=== PATIENT | male | born 1980 | race Two or more races ===

== ENCOUNTER 2018-03-29 10:47 | Emergency (ER) | payer BC ==
--- OUTSIDE RECORDS SUMMARY | 2018-03-29 11:27 | XMS REPORT ---
:1980 External Reference #:[id number] Author Organization [facility] Address [address] [place] [address] Phone [phone] Care Team Providers Name Role Phone Robert Vargas MD Care Team Information Comedian Unavailable Robert Vargas MD Primary Care Physician Unavailable Payers Type Date Identification Numbers Payment Provider Subscriber Commercial Effective: Policy Number: BC/BS Of [employer] Torres Yoly Muniz 2015 [id number] PayID: [id number] [place] [id number] Problems Date Description Provider Status Onset: 06/29/2012 Allergic rhinitis Igor Norwood M.D. Active Onset: 09/18/2016 Aortic valve disorder Robert Vargas M.D. Active Onset: 09/18/2016 Non-neoplastic nevus Robert Vargas M.D. Active Onset: 12/16/2017 Balanoposthitis Robert Vargas M.D. Active Onset: 06/29/2012 Obesity Igor Norwood M.D. Inactive Inactive: 11/09/2017 Onset: 01/31/2013 Hyperlipidemia Igor Norwood M.D. Inactive Inactive: 11/09/2017 Onset: 08/31/2013 Acute pharyngitis Florin Hernandez M.D. Inactive Inactive: 11/09/2017 Onset: 08/31/2013 Acute upper respiratory infection Florin Hernandez M.D. Inactive Inactive: 11/09/2017 Onset: 01/23/2015 Viral infection by site Mauricio Mc M.D. Inactive Inactive: 11/09/2017 Onset: 09/18/2016 Adult health examination Robert Vargas M.D. Inactive Inactive: 11/09/2017 Onset: 09/18/2016 Gastroesophageal reflux disease Robert Vargas M.D. Inactive Inactive: 11/09/2017 Onset: 09/18/2016 Allergic rhinitis due to pollen Robert Vargas M.D. 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 Never Smoked Cigarettes ETOH Use Social Alcohol Smoking Patient has never smoked Exercise Type/Frequency Current Exercises sporadically Allergies, Adverse Reactions, Alerts Date Description Reaction Status Severity Comments 12/26/2008 NKDA active Medications Medication Date Status Form Strength Qnty SIG Indications Ordering Provider Augmentin 03/15/ Active Tablets 500-125mg 30tab 1 by J01.90 Cora 2017 s mouth Esme three Méndez, times a BOAT PILOT day Levocetirizine / Active Tablets 5mg 1 by Unknown Dihydrochloride 0000 mouth every day as needed Allergy Eye Drops / Active Solution 0.025% as needed Unknown 0000 Qnasl / Active Aerosol 80mcg/Act use once Unknown 0000 a day 2 sprays Vitamin D3 High / Active Capsules 1000Unit once Unknown Potency 0000 daily Amoxicillin 05/05/ Hx Capsules 500mg 20cap 1 by J01.90 Cora 2016 - s mouth Esme 06/10/ twice a Méndez, 2016 day BOAT PILOT Amoxicillin/Clavu 07/29/ Hx Tablets 875-125mg 20tab 1 po bid 382.9 Radha lanate Potassium 2013 - s x 10 days Kevin, 08/08/ Afeleanor-C 2013 Doxycycline 03/20/ Hx Capsules 100mg 20cap 1 po bid 465.9 [facility] 2012 Amoxicillin/Potas 09/15/ Hx Tablets 875-125mg 20tab 1 po bid 465.9 Radha sium Clavulanate 2012 s x 10 days Kevin, 09/28/ Afnp-C 2012 Montelukast 06/29/ Hx Tablets 10mg 90tab 1 po qd 477.9 Costa Sodium 2012 - s Tam Norwood, Neva 2013 Amoxicillin/Potas 06/04/ Hx Tablets 875-125mg 20tab 1 po bid 461.0 Varsha Alejo sium Clavulanate 2011 - s Jamila, MBhavinDBhavin 2012 Loratadine-D 24HR 11/25/ Hx Tablets ER 10-240mg 30tab 1 po qd 465.9 Costa 2010 - 24HR yamilet Norwood, MBhavinDBhavin 2011 Singulair 11/19/ Hx Tablets 10mg 90tab 1 po qd 477.9 Costa 2010 - yamilet Norwood, M.DBhavin 2011 Zithromax Z-Woodrow 08/05/ Hx Tablets 250mg 1Pack as Mauricio Richardson - directed Alexandro, M.Erin 2009 Loratadine 00/ Hx Tablets 10mg 1 po qd Unknown 0000 - 2010 Raya Allergy /00/ Hx Tablets 180mg 1 po qd Unknown 0000 - prn 2010 Loratadine / Hx Tablets 10mg 30tab 1 po qd Unknown 0000 - s 2015 Raya Allergy /00/ Hx Tablets 180mg 1 po qd Unknown 0000 - 2014 Nasonex / Hx Suspension 50mcg/Act 2 sprays Unknown 0000 - in each 09/17/ nostril 2017 daily Immunizations CPT Code Status Date Vaccine Lot # [id number] Given 05/10/2016 Influenza Vac, Quadriv[place], [place] [id number] Given 04/21/2015 Influenza Vac, Quadriv[place], [place] [id number] Given 05/13/2014 DO Not Use Split Influenza Virus Vaccine [id number] Given 11/19/2010 Tdap Tetanus, W Pertussis [id number] Vital Signs Date Vital Result Comment 03/15/2018 BP Systolic 124 mmHg BP Diastolic 84 mmHg Heart Rate 60 /min Body Temperature 98.1 F Respiratory Rate 18 /min Height 77 inches 6'5" measured 11/09/17 Weight 212.00 lb BMI (Body Mass Index) 25.1 kg/m2 12/16/2017 BP Systolic 142 mmHg BP Diastolic 60 mmHg Heart Rate 50 /min Body Temperature 97.8 F Respiratory Rate 16 /min Height 77 inches 6'5" measured 11/09/17 Weight 202.00 lb BMI (Body Mass Index) 24.0 kg/m2 11/09/2017 BP Systolic 110 mmHg BP Diastolic 64 mmHg Heart Rate 48 /min Body Temperature 98.6 F Respiratory Rate 16 /min Height 77 inches 6'5" measured 11/09/17 Weight 203.25 lb BMI (Body Mass Index) 24.1 kg/m2 05/05/2017 BP Systolic 116 mmHg BP Diastolic 78 mmHg Heart Rate 60 /min Body Temperature 97.3 F Height 76 inches 6'4" Weight 201.00 lb BMI (Body Mass Index) 24.5 kg/m2 09/18/2016 BP Systolic 118 mmHg BP Diastolic 70 mmHg Heart Rate 72 /min Respiratory Rate 16 /min Height 76 inches 6'4" Weight 197.25 lb BMI (Body Mass Index) 24.0 kg/m2 08/30/2015 BP Systolic 124 mmHg BP Diastolic 80 mmHg Heart Rate 60 /min Body Temperature 97.4 F Respiratory Rate 18 /min Height 75.25 inches 6'3.25" Weight 241.00 lb BMI (Body Mass Index) 29.9 kg/m2 01/23/2015 BP Systolic 124 mmHg BP Diastolic 80 mmHg Heart Rate 72 /min Body Temperature 98.5 F Height 76 inches 6'4" Weight 253.00 lb BMI (Body Mass Index) 30.8 kg/m2 11/29/2014 BP Systolic 96 mmHg BP Diastolic 62 mmHg Heart Rate 76 /min Body Temperature 98.4 F ibuprofen 1.5 hrs ago Respiratory Rate 16 /min Height 76 inches 6'4" Weight 251.00 lb BMI (Body Mass Index) 30.5 kg/m2 08/15/2014 BP Systolic 142 mmHg BP Diastolic 94 mmHg Heart Rate 84 /min Body Temperature 97.1 F Respiratory Rate 18 /min Height 76 inches 6'4" Weight 250.00 lb BMI (Body Mass Index) 30.4 kg/m2 08/31/2013 BP Systolic 130 mmHg BP Diastolic 90 mmHg Heart Rate 72 /min Body Temperature 97.8 F Respiratory Rate 16 /min Height 76 inches 6'4" Weight 235.00 lb BMI (Body Mass Index) 28.6 kg/m2 07/29/2013 BP Systolic 120 mmHg BP Diastolic 80 mmHg Heart Rate 72 /min Body Temperature 98.4 F Respiratory Rate 16 /min Height 76 inches 6'4" Weight 237.00 lb BMI (Body Mass Index) 28.8 kg/m2 03/20/2013 BP Systolic 132 mmHg BP Diastolic 88 mmHg Heart Rate 80 /min Body Temperature 98.0 F Respiratory Rate 16 /min Height 76 inches 6'4" Weight 231.00 lb BMI (Body Mass Index) 28.1 kg/m2 03/13/2013 BP Systolic 116 mmHg BP Diastolic 70 mmHg Heart Rate 60 /min Body Temperature 97.9 F Respiratory Rate 16 /min Height 76 inches 6'4" Weight 231.38 lb BMI (Body Mass Index) 28.2 kg/m2 01/31/2013 BP Systolic 124 mmHg BP Diastolic 80 mmHg Heart Rate 68 /min Body Temperature 98.0 F Respiratory Rate 18 /min Height 76 inches 6'4" Weight 232.00 lb BMI (Body Mass Index) 28.2 kg/m2 09/15/2012 BP Systolic 124 mmHg BP Diastolic 94 mmHg Heart Rate 72 /min Body Temperature 98.1 F Height 76 inches 6'4" Weight 250.12 lb BMI (Body Mass Index) 30.4 kg/m2 06/29/2012 BP Systolic 120 mmHg BP Diastolic 90 mmHg Heart Rate 66 /min Body Temperature 97.1 F Height 76 inches 6'4" Weight 268.00 lb BMI (Body Mass Index) 32.6 kg/m2 06/04/2012 BP Systolic 130 mmHg BP Diastolic 84 mmHg Heart Rate 78 /min Body Temperature 98.0 F Height 76 inches 6'4" Weight 264.00 lb BMI (Body Mass Index) 32.1 kg/m2 05/30/2012 BP Systolic 134 mmHg BP Diastolic 64 mmHg Heart Rate 72 /min Body Temperature 98.4 F Height 76 inches 6'4" Weight 268.00 lb BMI (Body Mass Index) 32.6 kg/m2 11/25/2010 BP Systolic 106 mmHg BP Diastolic 72 mmHg Heart Rate 90 /min Body Temperature 99.6 F Height 76 inches 6'4" Weight 258.00 lb BMI (Body Mass Index) 31.4 kg/m2 11/19/2010 BP Systolic 122 mmHg BP Diastolic 72 mmHg Heart Rate 72 /min Body Temperature 97.1 F Height 76 inches 6'4" Weight 262.00 lb BMI (Body Mass Index) 31.9 kg/m2 05/27/2010 BP Systolic 120 mmHg BP Diastolic 80 mmHg Heart Rate 72 /min Body Temperature 98.7 F Respiratory Rate 20 /min O2 % BldC Oximetry 97 % Height 76 inches 6'4" Weight 260.00 lb BMI (Body Mass Index) 31.6 kg/m2 08/05/2009 BP Systolic 118 mmHg BP Diastolic 76 mmHg Heart Rate 80 /min Body Temperature 98.3 F Height 76 inches 6'4" Weight 241.00 lb BMI (Body Mass Index) 29.3 kg/m2 06/04/2009 BP Systolic 132 mmHg BP Diastolic 70 mmHg Heart Rate 72 /min Body Temperature 97.9 F Respiratory Rate 18 /min Height 76 inches 6'4" Weight 241.00 lb BMI (Body Mass Index) 29.3 kg/m2 01/23/2009 BP Systolic 118 mmHg BP Diastolic 72 mmHg Heart Rate 66 /min Body Temperature 96.5 F Height 76 inches 6'4" Weight 236.00 lb BMI (Body Mass Index) 28.7 kg/m2 01/09/2009 BP Systolic 122 mmHg BP Diastolic 68 mmHg Heart Rate 66 /min Body Temperature 97.0 F Height 76 inches 6'4" Weight 231.00 lb BMI (Body Mass Index) 28.1 kg/m2 12/26/2008 BP Systolic 118 mmHg BP Diastolic 84 mmHg Heart Rate 66 /min Body Temperature 97.0 F Height 76 inches 6'4" Weight 229.00 lb BMI (Body Mass Index) 27.9 kg/m2 Results Test Date Test Result H/L Range Note Ua - Non Micro ([facility]) 11/09/2017 Appearance clear Color yellow Glucose, Urine [place] [place] neg Bilirubin neg Ketones neg SP Grav 1.020 Blood neg PH 7.0 Protein neg Urobil 0.2 Nitrite neg Leukocytes ([facility] [place] neg CBC Electronic [facility] 11/09/2017 WBC 3.5 x10^3/UL Low 4.0-10.0 1 RBC 4.47 x10^6/UL 3.93-6.00 HGB 13.6 g/dL 12.0-17.0 HCT 40 % 35-50 MCV 90.4 fL 80.0-95.0 MCH 30.4 pg 25.6-32.2 MCHC 33.7 g/dL 32.2-36.0 RDW-CV 13.8 % 11.6-14.4 PLT 218 x10^3/UL 163-400 MPV 9.4 fL 9.4-12.4 Alfonzo# 1.15 x10^3/UL Low 1.56-6.13 Lymph# 1.66 x10^3/UL 1.18-3.74 Fergus# 0.39 x10^3/UL 0.24-0.82 Eos # 0.3 x10^3/UL 0.0-0.5 Baso # 0.03 x10^3/UL 0.01-0.08 Alfonzo% 32.9 % Low 34.0-70.0 Lymph % 47.4 % 20.0-52.0 Fergus% 11.1 % 5.0-12.0 Eos% 7.7 % High 0.7-7.0 Baso% 0.9 % 0.1-1.2 Comprehensive Metabolic Prof 11/09/2017 Sodium 138 mEq/L 134-149 Potassium 4.6 mEq/L 3.6-5.5 Chloride 96 mEq/L 94-112 Carbon Dioxide 30 mEq/L 21-32 Glucose 92 mg/dL 70-105 BUN 14 mg/dL 6-26 Creatinine 0.9 mg/dL 0.6-1.4 BUN/Creat Ratio 15.6 CALC 8.0-36.0 Calcium 10.0 mg/dL 8.6-10.2 Total Protein 6.9 g/dL 6.4-8.3 Albumin 4.8 g/dL 3.8-5.5 Globulin 2.1 g/dL 2.0-4.8 A/G Ratio 2.3 CALC 0.6-2.3 Alk. Phosphatase 51 U/L 22-95 Alt (SGPT) 20 U/L 7-35 Ast (Sgot) 31 U/L 5-34 Total Bilirubin 0.8 mg/dL 0.2-1.3 GFR Non- >60 ml/min/1.73m^ >=60 GFR >60 ml/min/1.73m^ >=60 Laboratory test finding 11/09/2017 TSH 1.64 mIU/L 0.50-6.00 Lipid Profile 11/09/2017 Cholesterol 194 mg/dL 120-200 Triglycerides 41 mg/dL 30-200 HDL Cholesterol 79 mg/dL High 30-70 LDL (Calculated) 107 CALC 0-129 VLDL Cholesterol 8 mg/dL 0-50 HDL Risk Factor 2.5 CALC 0.0-4.4 Ua - Non Micro ([facility]) 09/18/2016 Appearance clear Color yellow Glucose, Urine (a[place] [place]CTX[place] neg Bilirubin neg Ketones neg SP Grav 1.015 Blood neg PH 7.5 Protein neg Urobil 0.2 Nitrite neg Leukocytes ([facility] [place] neg Complete Blood Count 09/18/2016 WBC 4.5 x10^3/UL 3.6-9.6 RBC 4.64 x10^6/UL 3.90-5.70 HGB 14.2 g/dL 12.1-17.2 HCT 42 % 36-50 MCV 91.0 fL 82.2-97.4 MCH 30.7 pg 27.6-33.3 MCHC 33.7 g/dL 33.0-35.5 RDW 14.0 % High 11.6-13.7 PLT 251 x10^3/UL 150-400 MPV 6.6 fL Low 7.4-10.4 Gran # 2.9 x10^3/UL 1.5-7.2 Lymph# 1.5 x10^3/UL 0.7-4.9 Fergus# 0.1 x10^3/UL 0.1-0.9 Gran % 60.4 % 42.2-75.2 Lymph % 35.2 % 20.5-51.1 Fergus% 4.4 % 1.7-9.3 Comprehensive Metabolic Prof 09/18/2016 Sodium 140 mEq/L 134-149 Potassium 4.6 mEq/L 3.6-5.5 Chloride 101 mEq/L 94-112 Carbon Dioxide 32 mEq/L 21-32 Glucose 96 mg/dL 70-105 BUN 18 mg/dL 6-26 Creatinine 1.0 mg/dL 0.6-1.4 BUN/Creat Ratio 18.0 CALC 8.0-36.0 Calcium 10.2 mg/dL 8.6-10.2 Total Protein 7.1 g/dL 6.4-8.3 Albumin 4.7 g/dL 3.8-5.5 Globulin 2.4 g/dL 2.0-4.8 A/G Ratio 2.0 CALC 0.6-2.3 Alk. Phosphatase 50 U/L 22-95 Alt (SGPT) 22 U/L 7-35 Ast (Sgot) 19 U/L 5-34 Total Bilirubin 0.8 mg/dL 0.2-1.3 GFR Non- >60 ml/min/1.73m^ >=60 GFR >60 ml/min/1.73m^ >=60 Laboratory test finding 09/18/2016 TSH 1.21 mIU/L 0.50-6.00 Lipid Profile 09/18/2016 Cholesterol 199 mg/dL 120-200 Triglycerides 73 mg/dL 30-200 HDL Cholesterol 78 mg/dL High 30-70 LDL (Calculated) 106 CALC 0-129 VLDL Cholesterol 15 mg/dL 0-50 HDL Risk Factor 2.6 CALC 0.0-4.4 CBC Electronic ([facility]) 08/30/2015 WBC 4.3 3.6-9.6 RBC 4.73 3.90-5.70 Hemoglobin ([facility]/CMC/CTX) 13.9 g/dL 12.1 - 17.2 Hematocrit ([facility]/CMC/CTX) 42.0 % 36.1 - 50.3 Platelets 331 10^3/ul 150-400 Lymph% 41.3 % 17.0-48.0 Mixed% 6.8 Neutrophils % 51.9 Mean Corpuscular Vol 89 82.2-97.4 Mean Corpuscular Hemoglobin 29.3 27.6-33.3 Mean Corpuscular Hemo Concen 33.0 32.0-36.0 RDW 13.9 High 11.6-13.7 Mean Platelet Volume 7.1 5.5-11.0 Comprehensive Metabolic Prof 08/30/2015 Sodium 141 mEq/L 134-149 Potassium 4.3 mEq/L 3.6-5.5 Chloride 102 mEq/L 94-112 Carbon Dioxide 28 mEq/L 21-32 Glucose 98 mg/dL 70-105 BUN 13 mg/dL 6-26 Creatinine 0.9 mg/dL 0.6-1.4 BUN/Creat Ratio 14.4 CALC 8.0-36.0 Calcium 10.1 mg/dL 8.6-10.2 Total Protein 7.5 g/dL 6.4-8.3 Albumin 4.7 g/dL 3.8-5.5 Globulin 2.8 g/dL 2.0-4.8 A/G Ratio 1.7 CALC 0.6-2.3 Alk. Phosphatase 55 U/L 22-95 Alt (SGPT) 24 U/L 7-35 Ast (Sgot) 22 U/L 5-34 Total Bilirubin 0.6 mg/dL 0.2-1.3 GFR Non- >60 ml/min/1.73m^ >=60 GFR >60 ml/min/1.73m^ >=60 Lipid Profile 08/30/2015 Cholesterol 187 mg/dL 120-200 Triglycerides 77 mg/dL 30-200 HDL Cholesterol 61 mg/dL 30-70 LDL (Calculated) 111 CALC 0-129 VLDL Cholesterol 15 mg/dL 0-50 HDL Risk Factor 3.1 CALC 0.0-4.4 Laboratory test finding 08/30/2015 TSH 1.92 mIU/L 0.50-6.00 Ua - Non Micro (a) 08/30/2015 Appearance CLEAR Color YELLOW Glucose, Urine ([facility]/CTX) NEG Bilirubin NEG Ketones NEG SP Grav 1.015 Blood NEG PH 7.0 Protein NEG Urobil 0.2 Nitrite NEG Leukocytes ([facility] [place] NEG Comprehensive Metabolic Prof 01/23/2015 Sodium 137 mEq/L 134-149 Potassium 3.9 mEq/L 3.6-5.5 Chloride 99 mEq/L 94-112 Carbon Dioxide 29 mEq/L 21-32 Glucose 105 mg/dL 70-105 BUN 12 mg/dL 6-26 Creatinine 1.0 mg/dL 0.6-1.4 BUN/Creat Ratio 12.0 CALC 8.0-36.0 Calcium 10.0 mg/dL 8.6-10.2 Total Protein 7.7 g/dL 6.4-8.3 Albumin 4.6 g/dL 3.8-5.5 Globulin 3.1 g/dL 2.0-4.8 A/G Ratio 1.5 CALC 0.6-2.3 Alk. Phosphatase 78 U/L 22-95 Alt (SGPT) 43 U/L High 7-35 Ast (Sgot) 25 U/L 5-34 Total Bilirubin 0.6 mg/dL 0.2-1.3 Lyme Total AB Test/Reflex 01/23/2015 Lyme IgG/IgM Ab <0.91 ISR 0.00-0.90 2 CBC Electronic ([facility]) 01/23/2015 WBC 7.8 3.6-9.6 RBC 5.04 3.90-5.70 Hemoglobin ([facility]/CMC/CTX) 15.1 g/dL 12.1 - 17.2 Hematocrit ([facility]/CMC/CTX) 45.0 % 36.1 - 50.3 Platelets 294 10^3/ul 150-400 Lymph% 14.5 % Low 17.0-48.0 Mixed% 7.6 Neutrophils % 77.9 Mean Corpuscular Vol 89 82.2-97.4 Mean Corpuscular Hemoglobin 30.1 27.6-33.3 Mean Corpuscular Hemo Concen 33.7 32.0-36.0 RDW 13.8 High 11.6-13.7 Mean Platelet Volume 6.7 5.5-11.0 Comprehensive Metabolic Prof 08/15/2014 Sodium 140 mEq/L 134-149 Potassium 4.1 mEq/L 3.6-5.5 Chloride 103 mEq/L 94-112 Carbon Dioxide 31 mEq/L 21-32 Glucose 99 mg/dL 70-105 BUN 12 mg/dL 6-26 Creatinine 1.0 mg/dL 0.6-1.4 BUN/Creat Ratio 12.0 CALC 8.0-36.0 Calcium 10.1 mg/dL 8.6-10.2 Total Protein 7.4 g/dL 6.4-8.3 Albumin 4.7 g/dL 3.8-5.5 Globulin 2.7 g/dL 2.0-4.8 A/G Ratio 1.7 CALC 0.6-2.3 Alk. Phosphatase 70 U/L 22-95 Alt (SGPT) 41 U/L High 7-35 3 Ast (Sgot) 21 U/L 5-34 Total Bilirubin 0.7 mg/dL 0.2-1.3 Lipid Profile 08/15/2014 Cholesterol 238 mg/dL High 120-200 Triglycerides 115 mg/dL 30-200 HDL Cholesterol 51 mg/dL 30-70 LDL (Calculated) 164 CALC High 0-129 VLDL Cholesterol 23 mg/dL 0-50 HDL Risk Factor 4.7 CALC High 0.0-4.4 Complete Blood Count 08/15/2014 WBC 4.6 x10^3/UL 3.6-9.6 RBC 5.17 x10^6/UL 3.90-5.70 HGB 15.6 g/dL 12.1-17.2 HCT 47 % 36-50 MCV 90.0 fL 82.2-97.4 MCH 30.2 pg 27.6-33.3 MCHC 33.5 g/dL 33.0-35.5 RDW 12.1 % 11.6-13.7 PLT 235 x10^3/UL 150-400 MPV 7.2 fL Low 7.4-10.4 Gran # 2.7 x10^3/UL 1.5-7.2 Lymph# 1.7 x10^3/UL 0.7-4.9 Fergus# 0.2 x10^3/UL 0.1-0.9 Gran % 57.7 % 42.2-75.2 Lymph % 37.9 % 20.5-51.1 Fergus% 4.4 % 1.7-9.3 Laboratory test finding 08/31/2013 Throat - Beta Strep [facility] NEG@48HRS Lipid Profile 01/31/2013 Cholesterol 225 mg/dL High 120-200 HDL 49 mg/dL 30-70 Triglycerides 91 mg/dL 30-200 HDL Risk Factor 4.5 CALC High 0.0-4.4 LDL (Calculated) 157 CALC High 0-129 VLDL (Calculated) 18 mg/dL 0-50 Comprehensive Metabolic Prof 01/31/2013 Albumin 5.2 g/dL 3.8-5.5 Alk. Phos. 67 U/L 22-95 Alt (SGPT) 25 U/L 10-40 Ast (Sgot) 20 U/L 5-34 BUN 13 mg/dL 6-26 Calcium 9.6 mg/dL 8.6-10.2 Chloride 101 mEq/L 94-112 Creatinine 1.0 mg/dL 0.6-1.4 Carbon Dioxide 21 mEq/L 21-32 Glucose 99 mg/dL 70-105 Sodium 146 mEq/L 134-149 Total Bilirubin 0.8 mg/dL 0.2-1.3 Total Protein 7.2 g/dL 6.3-8.1 Potassium 4.4 mEq/L 3.6-5.5 Globulin 2.1 g/dL 2.0-4.8 A/G Ratio 2.5 Calc High 0.6-2.3 BUN/Creat Ratio 12.0 Calc 8.0-36.0 Laboratory test finding 06/29/2012 TSH 1.28 mIU/L 0.50-6.00 Basic Metabolic Profile 06/29/2012 BUN 12 mg/dL 6-26 Calcium 10.1 mg/dL 8.6-10.2 Chloride 102 mEq/L 94-112 Creatinine 1.1 mg/dL 0.6-1.4 Carbon Dioxide 27 mEq/L 21-32 Glucose 99 mg/dL 70-105 Sodium 138 mEq/L 134-149 Potassium 4.4 mEq/L 3.6-5.5 BUN/Creat Ratio 10.8 Calc 8.0-36.0 Lipid Profile 06/29/2012 Cholesterol 251 mg/dL High 120-200 HDL 49 mg/dL 30-70 Triglycerides 143 mg/dL 30-200 HDL Risk Factor 5.1 CALC High 0.0-4.4 LDL (Calculated) 173 CALC High 0-129 VLDL (Calculated) 29 mg/dL 0-50 Ua - Non Micro ([facility]) 06/29/2012 Appearance clear Color yellow Glucose, Urine (a/CMC/CTX) - Bilirubin - Ketones - SP Grav 1.015 Blood - PH 7.0 Protein - Urobil 0.2 Nitrite - Leukocytes ([facility] [place] - Laboratory test finding 06/04/2012 Monospot (a/[facility]) NEGATIVE CBC Electronic (a) 06/04/2012 WBC 9.4 3.6-9.6 RBC 5.09 3.90-5.70 Hemoglobin ([facility]/CMC/CTX) 15.0 g/dL 12.1 - 17.2 Hematocrit (a/CMC/CTX) 45.0 % 36.1 - 50.3 Platelets 319 10^3/ul 150-400 Lymph% 20.5 20.5-51.1 Mixed% 4.4 Neutrophils % 75.1 Mean Corpuscular Vol 88 82.2-97.4 Mean Corpuscular Hemoglobin 29.6 27.6-33.3 Mean Corpuscular Hemo Concen 33.4 32.0-36.0 RDW 12.8 11.6-13.7 Mean Platelet Volume 6.0 Low 6.5-11.0 Ebv Acute Infection Abs 06/04/2012 Ebv Ab Vca, IgM <0.2 AI 0.0-0.8 4 Ebv Early Antigen Ab, IgG 0.2 AI 0.0-0.8 5 Ebv Ab Vca, IgG 5.9 AI High 0.0-0.8 6 Ebv Nuclear Antigen Ab, IgG >8.0 AI High 0.0-0.8 7 Interpretation: SEE NOTE 8 Influenza A&B 06/04/2012 Influenza A NEGATIVE Influenza B NEGATIVE Laboratory test finding 05/30/2012 Throat - Beta Strep [facility] NEG@48HRS Quickstrep negative Negative Influenza A&B 05/30/2012 Influenza A negative Influenza B negative Influenza A&B 11/25/2010 Influenza A NEG Influenza B NEG Ua - Non Micro ([facility]) 11/19/2010 Appearance CLEAR Color NEG Glucose, Urine ([facility]/CMC/CTX) NEG Bilirubin NEG Ketones NEG SP Grav 1.020 Blood NEG PH 6.0 Protein NEG Urobil 0.2 Nitrite NEG Leukocytes (a[place] [place] NEG Influenza A&B 05/27/2010 Influenza A NEGATIVE Influenza B NEGATIVE Complete Blood Count 01/02/2009 WBC 5.1 x10^3/uL 3.6-9.6 9 Gran# 2.9 x10^3/uL 1.5-7.2 9 Gran% 56.6 % 42.2-75.2 9 HCT 42 % 36-50 9 HGB 14.2 g/dL 12.1-17.2 9 Lymph# 1.8 x10^3/uL 0.7-4.9 9 Lymph% 35.5 % 20.5-51.1 9 MCH 28.9 pg 27.6-33.3 9 MCV 85.5 fL 82.2-97.4 9 MCHC 33.8 g/dL 33.0-35.5 9 Mo# 0.4 x10^3/uL 0.1-0.9 9 Mo% 7.9 % 1.7-9.3 9 MPV 7.7 fL 7.4-10.4 9 PLT 275 x10^3/uL 150-400 9 RBC 4.92 x10^6/uL 3.90-5.70 9 RDW 13.4 % 11.6-13.7 9 Laboratory test finding 01/02/2009 TSH 1.26 mIU/L 0.50-6.00 9 Comprehensive Metabolic Prof 01/02/2009 Albumin 4.7 g/dL 3.8-5.5 9 Alk. Phos. 67 U/L 22-95 9 Alt (SGPT) 27 U/L 10-40 9 Ast (Sgot) 22 U/L 5-34 9 BUN 14 mg/dL 6-26 9 Calcium 10.1 mg/dL 8.6-10.2 9 Chloride 98 mEq/L 94-112 9 Creatinine 1.2 mg/dL 0.6-1.4 9 Carbon Dioxide 28 mEq/L 21-32 9 Glucose 88 mg/dL 70-105 9 Sodium 140 mEq/L 134-149 9 Total Bilirubin 0.5 mg/dL 0.2-1.3 9 Total Protein 7.5 g/dL 6.3-8.1 9 Potassium 4.6 mEq/L 3.6-5.5 9 Globulin 2.8 g/dL 2.0-4.8 9 A/G Ratio 1.7 Calc 0.6-2.2 9 BUN/Creat Ratio 12.2 Calc 8.0-36.0 9 Lipid Profile 01/02/2009 Cholesterol 203 mg/dL High 120-200 9 HDL 53 mg/dL 30-70 9 Triglycerides 125 mg/dL 30-200 9 HDL Risk Factor 3.9 CALC Low 4.2-7.0 9 LDL (Calculated) 126 CALC 0-129 9 VLDL (Calculated) 25 mg/dL 0-50 9 1 RESULTS VERIFIED BY REPEAT ANALYSIS 2 Negative <0.91 Equivocal 0.91 - 1.09 Positive >1.09 3 RESULTS VERIFIED BY REPEAT ANALYSIS 4 Negative <0.9 Equivocal 0.9 - 1.0 Positive >1.0 5 Negative <0.9 Equivocal 0.9 - 1.0 Positive >1.0 6 Negative <0.9 Equivocal 0.9 - 1.0 Positive >1.0 7 Negative <0.9 Equivocal 0.9 - 1.0 Positive >1.0 8 EBV Interpretation Chart . Interpretation VCA-IgM EA-IgG VCA-IgG NA-ABS . Susceptible - - - - Acute Infection + +or- +or- - Convalescent Phase +or- +or- + + Chronic or Reactivated - + + +or- Old Infection - - +or- + + Antibody Present - Antibody Absent 9 FASTING Procedures Date CPT Code Description Status 11/09/2017 15001 Electrocardiogram Complete Completed 08/30/2015 99555 Electrocardiogram Complete Completed 12/31/2008 39431 Event Monitoring Cardiac,interpretation Completed 12/26/2008 93995 Electrocardiogram Complete Completed Encounters Type Date Location Provider CPT E/M Dx Office Visit 12/16/2017 4:00p [facility] Robert Vargas M.D. 89938 N48.1 Office Visit 11/09/2017 9:00a [facility] Office Robert Vargas M.D. 62869 I35.8 I78.1 J30.1 Z00.00 Office Visit 05/05/2017 8:45a Main Office Cora MéndezELEANOR 68889 J01.90 Office Visit 09/18/2016 1:00p [facility] Robert Vargas M.D. 59147 I35.8 K21.9 J30.1 I78.1 Z00.00 Office Visit 08/30/2015 2:00p [facility] Robert Vargas M.D. 62787 J30.1 E78.2 D48.5 K21.9 Z00.00 Office Visit 01/23/2015 2:00p Main Office Mauricio Mc M.D. 96710 079.99 Office Visit 11/29/2014 10:45a Main Office [place] Mou[place]-C 36581 079.99 465.9 Office Visit 08/15/2014 10:10a [facility] Office Kanu Zambrano M.D. 54681 V70.0 Office Visit 08/31/2013 10:10a [facility] Florin Hernandez M.D. 26119 462 465.9 Office Visit 07/29/2013 9:45a Main Office [place]-C 41277 382.9 Office Visit 03/20/2013 10:45a [facility] Office [place] M[place]-C 02923 465.9 477.9 Office Visit 03/13/2013 2:45p [place] [address] 465.9 Office Visit 01/31/2013 11:00a [facility] Igor Norwood M.D. 38560 272.4 Office Visit 09/15/2012 1:45p [facility] [place]-C 60010 465.9 Office Visit 06/29/2012 10:00a [facility] Igor Norwood M.D. 46332 V70.0 V77.91 278.00 477.9 Office Visit 06/04/2012 11:30a Main Office Varsha Marino M.D. 19550 786.2 461.0 Office Visit 05/30/2012 7:50p [facility] Office Varsha Marino M.D. 89251 729.1 472.1 Office Visit 11/25/2010 2:40p [facility] Igor Norwood M.D. 61245 465.9 V73.89 Office Visit 11/19/2010 8:00a [facility] Office Igor Norwood M.D. 47650 V70.0 278.00 V77.91 709.9 477.9 493.90 v06.5 Office Visit 05/27/2010 8:40a Main Office Va Thomas M.D. 83775 079.99 Office Visit 08/05/2009 2:00p Main Office Mauricio Mc M.D. 16931 466.0 Office Visit 06/04/2009 4:00p Main Office Varsha Marino M.D. 58953 466.0 Office Visit 01/23/2009 9:20a [facility] Office Igor Norwood M.D. 88082 785.1 786.50 Office Visit 01/09/2009 9:10a [facility] Office Igor Norwood M.D. 97860 786.50 785.1 786.05 780.2 Office Visit 12/26/2008 11:20a [facility] Office Igor Norwood M.D. 39854 786.50 785.1 786.05 780.2 Plan of Care 03/15/2018 - Cora Méndez, NPJ01.90 Acute sinusitis, unspecifiedNew Medication:Augmentin 500-125 mgComments:Supportive care: 1) Make sure you are resting. This is the only way the body can take the energy it needs to heal itself. 2) Fluids, fluids, fluids! - Drink a lot of water or other caffeine free , clearliquids - Use a humidifier in your room at night or perform steam inhalations (20-30 mins) three times a day- If tolerated, use a saline nasal spray to help clear out your sinuses 3) Cough and blow it out, the more you can get out of your system the better4) For throat pain: try using an adult dose ofchildren's Tylenol to help coat your throat and give you some pain relief. 5) Sleep with the head ofthe bed up6) Avoid cigarette smoke, caffeine, alcoholIf you are not improving or begin to get worse,please contact the office to be seen again.AllComments:~B_~U_Medication Management~b_~u_ Patient Understands medications he 's taking? Yes No Are there Barriers to Adherence? Yes No Has the patient been asked about herbal supplements and therapies, and OTC meds? Yes No ~B_~U_Care Plan~b_~u_1. Patient has been queried about patient's goals/preferences and functional/lifestyle goals at relevant visits. If relevant, describe: na2. Treatment goals as explained to the patient: above3. Are there barriers to meeting treatment goals? Yes No If Yes, please describe:4. Self-Management goals as described to the patient:Yes NoAs always, we strongly encourage a healthy diet and making physical activity a part of your every day life. If you have questions about how or where to start, please contact the office.
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
--- NOTE | 2018-03-29 13:03 | RAD ---
HISTORY: Head injury 3 days ago. Worsening headache COMPARISONS: None TECHNIQUE: Multiple contiguous axial CT scans were obtained of the head without intravenous contrast. FINDINGS: HEMORRHAGE/INFARCT: There is no hemorrhage or acute infarct. MASSES/SHIFT: There is no mass or shift. EXTRA-AXIAL SPACES: There are no extra-axial fluid collections. SULCI AND VENTRICLES: The sulci and ventricles are normal in size and position for the patient's stated age. CEREBRUM: There are no focal parenchymal abnormalities. BRAINSTEM: There are no focal parenchymal abnormalities. CEREBELLUM: There are no focal parenchymal abnormalities. VESSELS: The vessels are grossly normal. PARANASAL SINUSES: The paranasal sinuses are clear. ORBITS: The orbits are unremarkable. BONES AND SOFT TISSUE: No bone or soft tissue abnormalities are noted. OTHER: None IMPRESSION: NO ACUTE INTRACRANIAL PATHOLOGY.
--- NOTE | 2018-03-29 13:20 | RAD ---
HISTORY: Head injury 3 days ago COMPARISONS: None TECHNIQUE: Multiple contiguous axial CT scans were obtained of the cervical spine without intravenous contrast, with coronal and sagittal multiplanar reformations. FINDINGS: BRAIN: The visualized brain is unremarkable CENTRAL CANAL: Evaluation of the central canal is limited on CT technique, however there is no obvious canalicular mass or epidural hemorrhage. ALIGNMENT: There is straightening with reversal of the normal cervical lordosis. VERTEBRAL BODIES: The odontoid process is intact. The atlantoaxial intervals are symmetric. The vertebral bodies are normal in attenuation, without fracture. JOINTS: There is no subluxation or dislocation MUSCULATURE: Unremarkable INTERVERTEBRAL DISCS: There is diffuse loss of intervertebral disc height. AXIAL IMAGES: On axial images, there is no osseous neural foraminal narrowing or central canal stenosis. SOFT TISSUES: The visualized soft tissues of the neck are unremarkable. The prevertebral fat stripe is preserved. OTHER: None. IMPRESSION: STRAIGHTENING WITH REVERSAL OF THE NORMAL CERVICAL LORDOSIS. NO ACUTE OSSEOUS INJURY TO THE CERVICAL SPINE
[2018-03-29 14:22] VITALS: BP 137/83
== END 2018-03-29 13:45 | disposition home or self-care (01) ==
LOC: UCEAST 10:47
DX: S09.90XA Unspecified injury of head, initial encounter (principal); S40.811A Abrasion of right upper arm, initial encounter; V17.0XXA Pedal cycle driver injured in collision with fixed or stationary object in nontraffic accident, initial encounter; Y93.55 Activity, bike riding; Y92.9 Unspecified place or not applicable; R51 Headache
CPT/HCPCS: 70450; 72125; 99211; G0463

== ENCOUNTER 2018-04-01 18:33 | Emergency (ER) | payer BC ==
[2018-04-01 18:43] VITALS: BP 152/85
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
== END 2018-04-01 19:10 | disposition home or self-care (01) ==
LOC: UCEAST 18:33
DX: L23.7 Allergic contact dermatitis due to plants, except food (principal)
CPT/HCPCS: 99212; G0463

== ENCOUNTER 2019-02-18 20:23 | Emergency (ER) | payer BC ==
--- OUTSIDE RECORDS SUMMARY | 2019-02-18 20:29 | XMS REPORT | Continuity of Care Document ---
:1980 External Reference #:[id number] Author Name Robert Vargas M.D. Address [address] [place] [address] Care Team Providers Name Role Phone Robert Vargas MD - Family Medicine Care Team Information Order Processing Manager [phone] Problems Active Problems Provider Date Allergic rhinitis Igor Norwood M.D. Onset: 06/29/2012 Aortic valve disorder Robert Vargas M.D. 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 Social History Type Date Description Comments Sex Unknown Tobacco Use Start: Unknown Never Smoked Cigarettes ETOH Use Social Alcohol Tobacco Use Start: Unknown Patient has never smoked Smoking Status Reviewed: 03/15/18 Patient has never smoked Allergies, Adverse Reactions, Alerts Description No Known Drug Allergies Medications Active Medications SIG Qnty Indications Ordering Date Provider Levocetirizine 1 by mouth every Unknown Dihydrochloride day as needed 5mg Tablets Allergy Eye Drops as needed Unknown 0.025% Solution Qnasl use once a day 2 Unknown 80mcg/Act Aerosol sprays Vitamin D3 High Potency once daily Unknown 1000Unit Capsules Methotrexate 5 tablets every Unknown 0.5mg Tablets week. Folic Acid 1 by mouth every Unknown Tablets day Tacrolimus apply to affected Unknown 0.1% Ointment area qd Qvar once a day Unknown Albuterol as needed Unknown Melatonin once a day Unknown Immunizations CPT Code Status Date Vaccine Lot # [id number] Given 05/02/2018 Influenza Vac, [place]riv[place], [place] [id number] Given 05/10/2016 Influenza Vac, [place]riv[place] [id number] Given 04/21/2015 Influenza Vac, [place]riv[place] [id number] Given 05/13/2014 DO Not Use Split Influenza Virus Vaccine [id number] Given 11/19/2010 Tdap Tetanus, W Pertussis [id number] Vital Signs Date Vital Result Comment 01/26/2019 9:55am BP Systolic 112 mmHg BP Diastolic 70 mmHg Heart Rate 46 /min Body Temperature 97.7 F Respiratory Rate 16 /min Height 76 inches 6'4" Weight 204.00 lb BMI (Body Mass Index) 24.8 kg/m2 06/11/2018 11:45am BP Systolic 128 mmHg BP Diastolic 66 mmHg Heart Rate 60 /min Body Temperature 97.0 F Respiratory Rate 16 /min Height 77 inches 6'5" measured 11/09/17 Weight 207.00 lb BMI (Body Mass Index) 24.5 kg/m2 Results Test Date Facility Test Result H/L Range Note Laboratory test 01/26/2019 [facility]) TSH <pending> 0.5-5.0 finding Ua - Non Micro 01/26/2019 [facility] Appearance Clear ([facility]) (607)- - Color Yellow Glucose, Urine ([facility]/CTX) Negative Bilirubin Negative Ketones Negative SP Grav 1.015 Blood Negative PH 8.0 Protein Negative Urobil 0.2 Nitrite Negative Leukocytes ([facility]/Centrex) Negative Procedures Description No Information Available Medical Devices Description No Information Available Encounters Description No Information Available Assessments Date Code Description Provider 01/26/2019 I35.8 Other nonrheumatic aortic valve disorders Robert Vargas M.D. 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 01/26/2019 J30.2 Other seasonal allergic rhinitis Robert Vargas M.D. 01/26/2019 Z00.00 Encounter for general adult medical Robert Vargas M.D. examination without abno Plan of Treatment 01/26/2019 - Robert Vargas M.D.I35.8 Other nonrheumatic aortic valve disordersComments:repeat ECHO to assess bicuspid dftkuP99.1 Nevus, non- neoplasticComments:has a follow up visit with Dr Cohen re lichen sclerosis, on methotrexate , patient advised to continue with regular routine lab work to check liver ogowywdeS62.2 Other seasonal allergic rhinitisComments:continue follow up with Dr Up, has yearly pulmonary functions, to continue present medication of QvarZ00.00 Encounter for general adult medical examination without abnoNew Labs:Ict Hemoccult ([facility]), Ordered: 01/26/19Comments:in excellent health , check lab work normal EKG 2018Follow up:Followup:. (Follow up)AllComments:Medication Management Patient Understands medications he's taking ? Yes No Are there Barriersto Adherence? Yes No Has the patient been asked about herbal supplements and therapies, and OTC meds? Yes No Patient was given anticipatory guidance regarding routine health care screenings, immunizations, and primary prevention of illness. Functional Status Description No Information Available Mental Status Description No Information Available Referrals Description No Information Available
[2019-02-18 20:33] VITALS: BP 146/86
--- NOTE | 2019-02-18 20:37 | UC ---
Throat Pain/Nasal Zach HPI - HPI Summary HPI Summary: 38-year-old male presents with 2 separate complaints. Patient's primary complaint is for a red burning rash to his scrotum that started today. States he was cycling this morning and then spent the day doing outdoor yard work and notes that he spent most of the day very sweaty. Has tried using an OTC antifungal cream x 1 application without improvement in symptoms. Denies urinary symptoms, penile discharge, testicular pain or swelling. His second complaint is for 1 day history of sore throat, general malaise, chills, nasal congestion, and sinus pressure. States has also had some mild nausea. Denies fever, ear pain, dysphagia, cough, chest pain, SOB, abdominal pain, vomiting, or diarrhea. - History of Current Complaint Chief Complaint: UCGeneralIllness Stated Complaint: RASH, SINUS CONGESTION AND SWEATY Time Seen by Provider: 02/18/19 20:31 Hx Obtained From: Patient Pain Intensity: 6 - Allergies/Home Medications Allergies/Adverse Reactions: Allergies Allergy/AdvReac Type Severity Reaction Status Date / Time environmental Allergy Hives Uncoded 02/18/19 20:34 Home Medications: Home Medications Beclomethasone 80 MCG MDI(NF) [Qvar 80 MCG MDI(NF)] 1 puff INH BID 02/18/19 [ History Confirmed 02/18/19] metHOTREXate sodium [Methotrexate] 1 dose 02/18/19 [History] PMH/Surg Hx/FS Hx/Imm Hx - Additional Past Medical History Additional PMH: lichens planus - Surgical History Surgical History: None - Family History Known Family History: Positive: None - Social History Occupation: Employed Full-time Lives: With Family Alcohol Use: Daily Substance Use Type: None Smoking Status (MU): Never Smoked Tobacco Review of Systems All Other Systems Reviewed And Are Negative: Yes Constitutional: Positive: Chills. Negative: Fever Skin: Positive: Rash - See HPI Eyes: Negative: Drainage, Eye Redness ENT: Positive: Sore Throat, Nasal Discharge, Sinus Congestion, Sinus Pain/ Tenderness. Negative: Ear Ache Respiratory: Negative: Shortness Of Breath, Cough Cardiovascular: Negative: Chest Pain Gastrointestinal: Positive: Nausea. Negative: Abdominal Pain, Vomiting, Diarrhea Genitourinary: Negative: Dysuria, Hematuria, Frequency, Urgency, Vaginal/Penile Discharge, Ulceration/Lesion, Other - testicular pain or swelling Musculoskeletal: Positive: Negative Neurological: Positive: Negative Is Patient Immunocompromised?: No Physical Exam - Summary Physical Exam Summary: GENERAL APPEARANCE: Well developed, well nourished, alert and cooperative, and appears to be in no acute distress. EYES: Conjunctiva clear. No drainage. EARS: External auditory canals and tympanic membranes clear, hearing grossly intact. NOSE: Mild nasal cogestion. No nasal discharge. THROAT: Mild pharyngeal erythema. 2+ tonsils without exudate or lesions. Uvula midline. NECK: Neck supple, non-tender without lymphadenopathy. CARDIAC: Normal S1 and S2. No S3, S4 or murmurs. Rhythm is regular. There is no peripheral edema, cyanosis or pallor. Extremities are warm and well perfused. Capillary refill is less than 2 seconds. Peripheral pulses intact. LUNGS: Clear to auscultation without rales, rhonchi, wheezing or diminished breath sounds. ABDOMEN: Positive bowel sounds. Soft, nondistended, nontender. No guarding or rebound. No masses or hepatosplenomegally. UROGENITAL: Uncircumcised. No penile discharge or lesions noted. Scrotum erythematous. Testicles smooth and nontender. MUSKULOSKELETAL: ROM intact to all extremities. No joint erythema or tenderness. Normal muscular development. Normal gait. SKIN: Skin normal color, texture and turgor with no lesions or eruptions. Triage Information Reviewed: Yes Vital Signs: Initial Vital Signs Temp 98.6 F 02/18/19 20:28 Pulse 55 02/18/19 20:28 Resp 18 02/18/19 20:28 BP 146/86 02/18/19 20:28 Pulse Ox 98 02/18/19 20:28 Vital Signs Reviewed: Yes Throat Pain/Nasal Course/Dx - Course Course Of Treatment: 38-year-old male presents with 2 separate complaints. Patient's primary complaint is for a red burning rash to his scrotum that started today. States he was cycling this morning and then spent the day doing outdoor yard work and notes that he spent most of the day very sweaty. Has tried using an OTC antifungal cream x 1 application without improvement in symptoms. Denies urinary symptoms, penile discharge, testicular pain or swelling. His second complaint is for 1 day history of sore throat, general malaise, chills, nasal congestion, and sinus pressure. States has also had some mild nausea. Denies fever, ear pain, dysphagia, cough, chest pain, SOB, abdominal pain, vomiting, or diarrhea. Afebrile. Hypertensive otherwise VSS. Patient had mild nasal congestion, mild pharyngeal erythema. 2+ tonsils without exudate or lesions, no cervical lymphadenopathy, erythema of the scrotum, but otherwise unremarkable exam. Rapid strep test was negative. Reviewed results with the patient. We discussed that based on his history and physical I suspect that his rash is a tinea cruris recommending that he continue to use [id number] antifungal cream and suggested he may want had an tuqe-gsu-slspvzn topical steroid to help with some of the inflammation and burning. I suspect that he also has a viral upper respiratory infection and recommending symptomatic treatment at this time. He is to follow-up with his primary care provider in 3-5 days if his symptoms are not improving. Anticipatory guidance and warning symptoms were reviewed with the patient. Verbalizes understanding and agrees with plan of care. - Differential Dx/Diagnosis Differential Diagnosis/HQI/PQRI: Influenza, Pharyngitis, Sinusitis, Tonsillitis , URI, Other - contact dermatitis, tinea crusis, cellulitis Provider Diagnosis: Tinea cruris, Viral upper respiratory infection Discharge ED - Sign-Out/Discharge Documenting (check all that apply): Patient Departure All imaging exams completed and their final reports reviewed: No Studies - Discharge Plan Condition: Stable Disposition: HOME Patient Education Materials: Upper Respiratory Infection (ED), Jock Itch (ED) Referrals: Robert Vargas MD [Primary Care Provider] - 3 Days Additional Instructions: The rash appears to be a fungal infection (jock itch). I would recommend that you continue to use an over the counter antifungal cream as directed. You may also use an over the counter topical steroid such as hydrocortisone according to directions to help with the inflammation and burning. Apply this after the antifungal cream. The rapid strep test was performed today was negative. Your history and exam are consistent with a viral upper respiratory infection. Viral infections do not respond to antibiotics and are limited to the treatment of symptoms. Viral infections typically run their course in 7-10 days. Drink plenty of fluids to avoid dehydration especially if you are running any fever. Use a saline rinse kit such as Neti Pot or NeilMed at least twice a day to help thin secretions and promote drainage of the sinuses. Use fluticasone (Flonase) nasal spray 2 sprays each nostril once daily. You can use an over the counter decongestant such as Sudafed according to directions as needed for congestion. Take over the counter acetaminophen (Tylenol) or ibuprofen (Advil, Motrin) according to directions as needed for pain or fever. Use salt water gargles several times a day if you have a sore throat. You may also use Chloraseptic spray or Cepacol lonzenges according to directions which contain a numbing medication and can provide some temporary relief from your sore throat. Follow up with your primary care provider in 3-5 days if symptoms persist. Seek immediate medical attention in the emergency room if you have fever greater than 100.5 F despite taking acetaminophen or ibuprofen, have chest pain , difficulty breathing, are unable to swallow, have testicular pain or swelling , or have any worsening of symptoms. - Billing Disposition and Condition Condition: STABLE Disposition: Home
== END 2019-02-18 21:20 | disposition home or self-care (01) ==
LOC: UCEAST 20:23
DX: B35.6 Tinea cruris (principal); J06.9 Acute upper respiratory infection, unspecified
CPT/HCPCS: 87651; 99211; G0463

== ENCOUNTER 2019-07-10 12:16 | Emergency (ER) | payer BC ==
--- OUTSIDE RECORDS SUMMARY | 2019-07-10 14:55 | XMS REPORT | Continuity of Care Document ---
:1980 External Reference #:[id number] Author Name Shabbir Up MD Address [address] [place] [id number] Care Team Providers Name Role Phone Robert Vargas MD - Family Care Team Information Track Inspecting Supervisor [phone] Medicine Problems Active Problems Provider Date Acute atopic conjunctivitis Shabbir Up MD Onset: 07/10/2015 Allergic rhinitis due to pollen Shabbir Up MD Onset: 07/10/2015 Allergic rhinitis Shabbir Up MD Onset: 07/10/2015 Chronic allergic conjunctivitis MELISA Perez Onset: 2015 Mild intermittent asthma MISSY Grady Onset: 10/17/2018 Acute maxillary sinusitis Shabbir Up MD Onset: 06/09/2019 Social History Type Date Description Comments Sex Unknown Tobacco Use Start: Unknown Patient has never smoked Smoking Status Reviewed: 06/09/19 Patient has never smoked Allergies, Adverse Reactions, Alerts Description No Known Drug Allergies Medications Active Medications SIG Qnty Indications Ordering Provider Date Avelox take 1 tab by 14tabs J01.01 Shabbir Turcios 06/09/2019 400mg mouth daily for MD Jeovanny Tablets 14 days Qvar Redihaler inhale 2 puffs 10.600gm J30.1 Shabbir Turcios 10/17/2018 twice a day. MD Jeovanny 80mcg/Act Aerosol rinse mouth after use. Proair HFA 2 puffs every 4 17gm J30.1 Shabbir Turcios 09/21/2018 as needed MD Jeovanny 108(90Base) mcg/Act Aerosol Qnasl 2 sprays each 31.8gm H10.13 Shabbir Turcios 10/21/2015 80mcg/Act nostril once MD Jeovanny Aerosol daily Pataday instill 2 drops 2.500ml H10.13 Dennisopher A. 07/10/2015 0.2% into affected MD Jeovanny Solution eye(s) once daily as needed Cetirizine HCL take one tablet 30tabs Dennisophtodd A. 10mg by mouth as MD Jeovanny Tablets needed Medications Administered in Office Medication SIG Qnty Indications Ordering Provider Date Allergy Injection 2 Or More Shabbir Up MD 05/15/2019 Injection Allergy Injection 2 Or More Shabbir Up MD 04/17/2019 Injection Allergy Injection 2 Or More Shabbir Up MD 03/31/2019 Injection Allergy Injection 2 Or More Shabbir Up MD 03/20/2019 Injection Allergy Injection 2 Or More Shabbir Up MD 03/03/2019 Injection Allergy Injection 2 Or More Shabbir Up MD 02/17/2019 Injection Allergy Injection 2 Or More Shabbir Up MD 01/27/2019 Injection Allergy Injection 2 Or More Shabbir Up MD 01/16/2019 Injection Allergy Injection 2 Or More Shabbir Up MD 01/02/2019 Injection Allergy Injection 2 Or More Shabbir Up MD 12/12/2018 Injection Allergy Injection 2 Or More Shabbir Up MD 11/28/2018 Injection Allergy Injection 2 Or More Shabbir Up MD 11/16/2018 Injection Allergy Injection 2 Or More Shabbir Up MD 10/31/2018 Injection Allergy Injection 2 Or More Shabbir Up MD 10/17/2018 Injection Allergy Injection 2 Or More Shabbir Up MD 10/03/2018 Injection Allergy Injection 2 Or More Shabbir Up MD 09/19/2018 Injection Allergy Injection 2 Or More Shabbir Up MD 09/05/2018 Injection Allergy Injection 2 Or More Shabbir Up MD 08/22/2018 Injection Allergy Injection 2 Or More Shabbir Up MD 08/08/2018 Injection Allergy Injection 2 Or More Shabbir Up MD 07/25/2018 Injection Allergy Injection 2 Or More Shabbir Up MD 07/11/2018 Injection Allergy Injection 2 Or More Shabbir Up MD 06/29/2018 Injection Allergy Injection 2 Or More Shabbir Up MD 06/15/2018 Injection Allergy Injection 2 Or More Shabbir Up MD 05/30/2018 Injection Allergy Injection 2 Or More Shabbir Up MD 05/16/2018 Injection Allergy Injection 2 Or More Shabbir Up MD 05/02/2018 Injection Allergy Injection 2 Or More Shabbir Up MD 04/18/2018 Injection Allergy Injection 2 Or More Shabbir Up MD 03/21/2018 Injection Allergy Injection 2 Or More Shabbir Up MD 03/07/2018 Injection Allergy Injection 2 Or More Shabbir Up MD 02/23/2018 Injection Allergy Injection 2 Or More Shabbir Up MD 02/07/2018 Injection Allergy Injection 2 Or More Shabbir Up MD 01/24/2018 Injection Allergy Injection 2 Or More Shabbir Up MD 01/07/2018 Injection Allergy Injection 2 Or More Injection 1 01/07/2018 Injection Allergy Injection 2 Or More Shabbir Up MD 12/24/2017 Injection Allergy Injection 2 Or More Shabbir Up MD 12/10/2017 Injection Allergy Injection 2 Or More Shabbir Up MD 11/26/2017 Injection Allergy Injection 2 Or More Shabbir Up MD 11/10/2017 Injection Allergy Injection 2 Or More Shabbir Up MD 10/27/2017 Injection Allergy Injection 2 Or More Shabbir Up MD 10/13/2017 Injection Allergy Injection 2 Or More Shabbir Up MD 08/13/2017 Injection Allergy Injection 2 Or More Shabbir Up MD 07/16/2017 Injection Allergy Injection 2 Or More Shabbir Up MD 06/18/2017 Injection Allergy Injection 2 Or More Shabbir Up MD 05/19/2017 Injection Allergy Injection 2 Or More Shabbir Up MD 04/26/2017 Injection Allergy Injection 2 Or More Shabbir Up MD 04/09/2017 Injection Allergy Injection 2 Or More Shabbir Up MD 03/24/2017 Injection Allergy Injection 2 Or More Shabbir Up MD 03/10/2017 Injection Allergy Injection 2 Or More Shabbir Up MD 02/24/2017 Injection Allergy Injection 2 Or More Shabbir Up MD 02/10/2017 Injection Allergy Injection 2 Or More Shabbir Up MD 01/27/2017 Injection Allergy Injection 2 Or More Shabbir Up MD 01/01/2017 Injection Allergy Injection 2 Or More Shabbir Up MD 12/18/2016 Injection Allergy Injection 2 Or More Shabbir Up MD 12/07/2016 Injection Allergy Injection 2 Or More Shabbir Up MD 11/20/2016 Injection Allergy Injection 2 Or More Shabbir Up MD 11/06/2016 Injection Allergy Injection 2 Or More Shabbir Up MD 10/23/2016 Injection Allergy Injection 2 Or More Shabbir Up MD 10/07/2016 Injection Allergy Injection 2 Or More Shabbir Up MD 09/23/2016 Injection Allergy Injection 2 Or More Shabbir Up MD 09/09/2016 Injection Allergy Injection 2 Or More Shabbir Up MD 08/26/2016 Injection Allergy Injection 2 Or More Shabbir Up MD 08/12/2016 Injection Allergy Injection 2 Or More Shabbir Up MD 07/24/2016 Injection Allergy Injection 2 Or More Shabbir Up MD 07/10/2016 Injection Allergy Injection 2 Or More Shabbir Up MD 06/26/2016 Injection Allergy Injection 2 Or More Shabbir Up MD 06/10/2016 Injection Allergy Injection 2 Or More Shabbir Up MD 2016 Injection Allergy Injection 2 Or More Shabbir Up MD 04/29/2016 Injection Allergy Injection 2 Or More Shabbir Up MD 04/22/2016 Injection Allergy Injection 2 Or More Shabbir Up MD 04/15/2016 Injection Allergy Injection 2 Or More Shabbir Up MD 04/10/2016 Injection Allergy Injection 2 Or More Shabbir Up MD 04/03/2016 Injection Allergy Injection 2 Or More Shabbir Up MD 03/25/2016 Injection Allergy Injection 2 Or More Shabbir Up MD 03/20/2016 Injection Allergy Injection 2 Or More Shabbir Up MD 03/09/2016 Injection Allergy Injection 2 Or More Shabbir Up MD 03/04/2016 Injection Allergy Injection 2 Or More Shabbir Up MD 02/26/2016 Injection Allergy Injection 2 Or More Shabbir Up MD 02/21/2016 Injection Allergy Injection 2 Or More Shabbir Up MD 02/14/2016 Injection Allergy Injection 2 Or More Shabbir Up MD 02/07/2016 Injection Allergy Injection 2 Or More Shabbir Up MD 01/29/2016 Injection Allergy Injection 2 Or More Shabbir Up MD 01/22/2016 Injection Allergy Injection 2 Or More Shabbir Up MD 01/15/2016 Injection Allergy Injection 2 Or More Shabbir Up MD 01/03/2016 Injection Allergy Injection 2 Or More Shabbir Up MD 12/30/2015 Injection Allergy Injection 2 Or More Shabbir Up MD 12/25/2015 Injection Allergy Injection 2 Or More Shabbir Up MD 12/18/2015 Injection Allergy Injection 2 Or More Shabbir Up MD 12/11/2015 Injection Allergy Injection 2 Or More Shabbir Up MD 12/04/2015 Injection Allergy Injection 2 Or More Shabbir Up MD 11/27/2015 Injection Allergy Injection 2 Or More Shabbir Up MD 11/20/2015 Injection Allergy Injection 2 Or More Shabbir Up MD 11/13/2015 Injection Allergy Injection 2 Or More Shabbir Up MD 11/06/2015 Injection Allergy Injection 2 Or More Shabbir Up MD 10/30/2015 Injection Allergy Injection 2 Or More Shabbir Up MD 10/23/2015 Injection Allergy Injection 2 Or More Shabbir Up MD 10/18/2015 Injection Allergy Injection 2 Or More Shabbir Up MD 10/09/2015 Injection Allergy Injection 2 Or More Shabbir Up MD 10/02/2015 Injection Allergy Injection 2 Or More Shabbir Up MD 09/25/2015 Injection Allergy Injection 2 Or More Shabbir Up MD 09/18/2015 Injection Allergy Injection 2 Or More Shabbir Up MD 09/11/2015 Injection Allergy Injection 2 Or More Shabbir Up MD 09/04/2015 Injection Allergy Injection 2 Or More Shabbir Up MD 08/28/2015 Injection Allergy Injection 2 Or More Shabbir Up MD 08/21/2015 Injection Allergy Injection 2 Or More Shabbir Up MD 08/16/2015 Injection Allergy Injection 2 Or More Shabbir Up MD 08/07/2015 Injection Allergy Injection 2 Or More Shabbir Up MD 08/02/2015 Injection Immunizations Description No Information Available Vital Signs Date Vital Result Comment 06/09/2019 1:51pm BP Systolic 151 mmHg BP Diastolic 90 mmHg Height 76 inches 6'4" Weight 200.00 lb BMI (Body Mass Index) 24.3 kg/m2 Heart Rate 78 /min Body Temperature 98.7 F O2 % BldC Oximetry 99 % 04/24/2019 8:42am BP Systolic 139 mmHg BP Diastolic 69 mmHg Height 76 inches 6'4" Weight 200.00 lb BMI (Body Mass Index) 24.3 kg/m2 Heart Rate 51 /min O2 % BldC Oximetry 98 % Results Description No Information Available Procedures Date Code Description Status 05/15/2019 26719 Allergy Injection 2 Or More Completed 04/24/2019 17796 Nitric Oxide Gas Determination Completed 04/24/2019 34713 Bronchodilation Responsiveness Spirometry Pre/Post Completed Bronchodil Adm 04/17/2019 63787 Allergy Injection 2 Or More Completed 03/31/2019 66802 Allergy Injection 2 Or More Completed 03/20/2019 47441 Allergy Injection 2 Or More Completed 03/03/2019 62640 Allergy Injection 2 Or More Completed 02/17/2019 32396 Allergy Injection 2 Or More Completed 02/13/2019 30492 Allergy Antigens Single Or Multiple Completed 01/27/2019 71009 Allergy Injection 2 Or More Completed 01/16/2019 43486 Allergy Injection 2 Or More Completed 01/02/2019 25576 Allergy Injection 2 Or More Completed 12/12/2018 36286 Allergy Injection 2 Or More Completed Medical Devices Description No Information Available Encounters Type Date Location Provider Dx Diagnosis Office Visit 04/24/2019 8:30a MISSY Hernández J30.1 Allergic rhinitis due to pollen J30.89 Other allergic rhinitis H10.45 Other chronic allergic conjunctivitis J45.20 Mild intermittent asthma, uncomplicated Assessments Date Code Description Provider 06/09/2019 J01.01 Acute recurrent maxillary sinusitis Shabbir Up MD 05/15/2019 J30.1 Allergic rhinitis due to pollen Shabbir Up MD 05/15/2019 J30.89 Other allergic rhinitis Shabbir Up MD 04/24/2019 J30.1 Allergic rhinitis due to pollen MISSY Grady 04/24/2019 J30.89 Other allergic rhinitis MISSY Grady 04/24/2019 H10.45 Other chronic allergic conjunctivitis MISSY Grady 04/24/2019 J45.20 Mild intermittent asthma, uncomplicated MISSY Grady 04/17/2019 J30.1 Allergic rhinitis due to pollen Shabbir Up MD 04/17/2019 J30.89 Other allergic rhinitis Shabbir Up MD 03/31/2019 J30.1 Allergic rhinitis due to aric Up MD 03/31/2019 J30.89 Other allergic ridge Up MD 03/20/2019 J30.1 Allergic rhinitis due to pollen Shabbir Up MD 03/20/2019 J30.89 Other allergic rhinitis Shabbir Up MD 03/03/2019 J30.1 Allergic rhinitis due to pollen Shabbir Up MD 03/03/2019 J30.89 Young allergic ridge Up MD 02/17/2019 J30.1 Allergic rhinitis due to aric Up MD 02/17/2019 J30.89 Other allergic rhinitis Shabbir Up MD 02/13/2019 J30.1 Allergic rhinitis due to pollen Shabbir Up MD 02/13/2019 J30.89 Young allergic ridge Up MD 01/27/2019 J30.1 Allergic rhinitis due to pollen Shabbir Up MD 01/27/2019 J30.89 Young allergic ridge Up MD 01/16/2019 J30.1 Allergic rhinitis due to aric Up MD 01/16/2019 J30.89 Other allergic ridge Up MD 01/02/2019 J30.1 Allergic rhinitis due to pollen Sahbbir Up MD 01/02/2019 J30.89 Other allergic rhinitis Shabbir Up MD 12/12/2018 J30.1 Allergic rhinitis due to pollen Shabbir Up MD 12/12/2018 J30.89 Other allergic rhinitis Shabbir Up MD Plan of Treatment Future Appointment(s):06/16/2019 10:50 am - Injection 1 at [id number]/23/2019 8: 30 am - MISSY Grady at [id number]/09/2019 - Shabbir Up MDJ01.01 Acute recurrent maxillary sinusitisNew Medication:Avelox 400 mg - take 1 tab by mouth daily for 14 days Functional Status Description No Information Available Mental Status Description No Information Available Referrals Description No Information Available
[2019-07-10 15:22] VITALS: BP 151/78
--- NOTE | 2019-07-10 15:27 | UC ---
FLU HPI - HPI Summary HPI Summary: 39-year-old male presents with 2 day history of fatigue, body aches, chest congestion, and occasional nonproductive cough. States daughter was tested positive for influenza yesterday. Denies fever, ear pain, sore throat, chest pain, shortness of breath, wheezing, abdominal pain, nausea, or vomiting. - History of Current Complaint Chief Complaint: UCGeneralIllness Stated Complaint: FLU LIKE SYMPTOMS Time Seen by Provider: 07/10/19 14:58 Hx Obtained From: Patient Pain Intensity: 2 - Allergy/Home Medications Allergies/Adverse Reactions: Allergies Allergy/AdvReac Type Severity Reaction Status Date / Time environmental Allergy Hives Uncoded 07/10/19 15:23 PMH/Surg Hx/FS Hx/Imm Hx Respiratory History: Asthma - Surgical History Surgical History: None - Family History Known Family History: Positive: None - Social History Occupation: Employed Full-time Lives: With Family Alcohol Use: Daily Substance Use Type: None Smoking Status (MU): Never Smoked Tobacco Review of Systems All Other Systems Reviewed And Are Negative: Yes Constitutional: Positive: Fatigue. Negative: Fever Eyes: Negative: Drainage, Eye Redness ENT: Negative: Sore Throat, Ear Ache, Nasal Discharge, Sinus Congestion, Sinus Pain/Tenderness Respiratory: Positive: Cough. Negative: Shortness Of Breath Cardiovascular: Negative: Palpitations, Chest Pain Gastrointestinal: Negative: Abdominal Pain, Vomiting, Nausea Genitourinary: Positive: Negative Musculoskeletal: Positive: Myalgia Neurological: Positive: Negative Is Patient Immunocompromised?: No Physical Exam - Summary Physical Exam Summary: GENERAL APPEARANCE: Well developed, well nourished, alert and cooperative, and appears to be in no acute distress. EYES: Conjunctiva clear. No drainage. EARS: External auditory canals and tympanic membranes clear, hearing grossly intact. NOSE: No nasal discharge. THROAT: Pharynx normal. No tonsilar inflammation, swelling, exudate, or lesions. Uvula midline. NECK: Neck supple, non-tender without lymphadenopathy. CARDIAC: Normal S1 and S2. No S3, S4 or murmurs. Rhythm is regular. There is no peripheral edema, cyanosis or pallor. Extremities are warm and well perfused. Capillary refill is less than 2 seconds. Peripheral pulses intact. LUNGS: Clear to auscultation without rales, rhonchi, wheezing or diminished breath sounds. Cough not observed. ABDOMEN: Positive bowel sounds. Soft, nondistended, nontender. No guarding or rebound. No masses or hepatosplenomegally. MUSKULOSKELETAL: ROM intact to all extremities. No joint erythema or tenderness. Normal muscular development. Normal gait. SKIN: Skin normal color, texture and turgor with no lesions or eruptions. Triage Information Reviewed: Yes Vital Signs: Initial Vital Signs Temp 98 F 07/10/19 15:18 Pulse 55 07/10/19 15:18 Resp 16 07/10/19 15:18 BP 151/78 07/10/19 15:18 Pulse Ox 100 07/10/19 15:18 Vital Signs Reviewed: Yes Flu Course/Dx - Course Course Of Treatment: 39-year-old male presents with 2 day history of fatigue, body aches, chest congestion, and occasional nonproductive cough. States daughter was tested positive for influenza yesterday. Denies fever, ear pain, sore throat, chest pain, shortness of breath, wheezing, abdominal pain, nausea, or vomiting. Afebrile. Hypertensive otherwise vital signs stable. Patient had no nasal congestion, normal TMs, normal pharynx without tonsillar swelling or exudate, no cervical lymphadenopathy, clear bilateral breath sounds, and otherwise unremarkable exam. Rapid flu test was negative. Reviewed results with the patient. Recommending symptomatic treatment for an acute bronchitis. He is to follow-up with his primary care provider in 5-7 days if symptoms are not improving. Anticipatory guidance warning symptoms were reviewed with the patient. Verbalizes understanding and agrees with plan of care. - Differential Dx/Diagnosis Differential Diagnosis/HQI/PQRI: Bronchitis, Influenza, Pneumonia, Upper Respiratory Infection Provider Diagnosis: Acute bronchitis Discharge ED - Sign-Out/Discharge Documenting (check all that apply): Patient Departure All imaging exams completed and their final reports reviewed: No Studies - Discharge Plan Condition: Stable Disposition: HOME Patient Education Materials: Acute Bronchitis (ED) Referrals: Robert Vargas MD [Primary Care Provider] - Additional Instructions: Your history and exam are consistent with acute bronchitis which is most often caused by a viral infection. Viral infections do not respond to antibiotics and are limited to the treatment of symptoms. Viral infections typically run their course in 7-10 days. Get plenty of rest. Drink plenty of fluids. Run a cool mist humidifer in your room at night. Take over the counter acetaminophen (Tylenol) or ibuprofen (Advil, Motrin) according to directions as needed for pain or fever. Use an over the counter cough syrup as needed for cough. Follow up with your primary care provider in 7 days if symptoms do not improve. Seek immediate medical attention in the emergency room if you have fever greater than 100.5 F despite taking acetaminophen or ibuprofen, have chest pain , difficulty breathing, or have any worsening of symptoms. - Billing Disposition and Condition Condition: STABLE Disposition: Home - Attestation Statements Provider Attestation: This patient was not seen by me. I was available for consult. Chart reviewed. SHAYY
[2019-07-10 15:43] LABS: Influenza A Molecular NEGATIVE (Negative); Influenza B Molecular NEGATIVE (Negative)
== END 2019-07-10 16:10 | disposition home or self-care (01) ==
LOC: UCEAST 12:16
DX: J20.9 Acute bronchitis, unspecified (principal); R09.89 Other specified symptoms and signs involving the circulatory and respiratory systems; J02.9 Acute pharyngitis, unspecified; H92.09 Otalgia, unspecified ear; R09.82 Postnasal drip; R09.81 Nasal congestion; Z91.09 Other allergy status, other than to drugs and biological substances
CPT/HCPCS: 99211; G0463